=== PATIENT | male | born 1940 | race Caucasian/White ===

== ENCOUNTER → 2017-11-24 | Outpatient (CLI) | payer OTHER ==
[~2017-11-24] MED LIST: AMLO5 PO; COUMADIN; FINA5 PO; FLUSAL2505 INH; HYDROCHLOROTHIAZIDE; LEVSOD88 PO; LISINOPRIL; METO100ER PO; NORVASC; OMEPRAZOLE MAGN20 MG PO; Simvastatin20 MG PO; VALSARTAN-HCTZ1 EAC4 PO
== END ==
LOC: PLD 13:59 → LAB SHORT 13:59
DX: D48.5 Neoplasm of uncertain behavior of skin (principal)
CPT/HCPCS: 88305

== ENCOUNTER → 2017-12-14 | Outpatient (CLI) | payer OTHER | LOC: LAB SHORT 07:42 → PLD 07:42 | DX: C44.319 Basal cell carcinoma of skin of other parts of face (principal) | CPT/HCPCS: 88305 ==

== ENCOUNTER → 2019-06-08 | Outpatient (CLI) | payer OTHER | END | disposition home or self-care (01) | LOC: PLD 14:24 → LAB SHORT 14:24 | DX: C44.319 Basal cell carcinoma of skin of other parts of face (principal); D22.5 Melanocytic nevi of trunk | CPT/HCPCS: 88305 ==

== ENCOUNTER → 2019-06-21 | Outpatient (CLI) | payer OTHER | LOC: PLD 14:14 → LAB SHORT 14:14 | DX: C44.310 Basal cell carcinoma of skin of unspecified parts of face (principal) | CPT/HCPCS: 88305 ==

== ENCOUNTER → 2019-12-13 | Outpatient (CLI) | payer OTHER | END | disposition home or self-care (01) | LOC: PLD 09:13 → LAB SHORT 09:13 | DX: D48.5 Neoplasm of uncertain behavior of skin (principal) | CPT/HCPCS: 88305 ==

== ENCOUNTER → 2020-01-17 | Outpatient (CLI) | payer OTHER | END | disposition home or self-care (01) | LOC: PLD 08:08 → LAB SHORT 08:08 | DX: C44.619 Basal cell carcinoma of skin of left upper limb, including shoulder (principal) | CPT/HCPCS: 88305 ==

== ENCOUNTER → 2020-06-02 | Outpatient (CLI) | payer OTHER ==
[~2020-06-02] MED LIST changes: +OMEP20ER PO
[2020-06-02 11:06] LABS: BASOPHILS ABSOLUTE AUTO 0.06 K/mm3 (0.00-0.23); BASOPHILS PERCENT AUTO 1 % (0-2); EOSINOPHILS ABSOLUTE AUTO 0.57 K/mm3 (0.00-0.68); EOSINOPHILS PERCENT AUTO 8 % (0-6); Hematocrit 44.9 % (37.0-53.0); Hemoglobin 15.4 g/dL (13.5-17.5); IMMATURE GRAN ABSOLUTE AUTO 0.02 K/mm3 (0.00-0.10); IMMATURE GRAN PERCENT AUTO 0 % (0-1); LYMPHOCYTES PERCENT AUTO 34 % (21-46); MONOCYTES ABSOLUTE AUTO 0.67 K/mm3 (0.16-1.47); MONOCYTES PERCENT AUTO 10 % (4-13); Mean Corpuscular HGB 30.1 pg (26.0-34.0); Mean Corpuscular HGB Conc 34.3 g/dL (31.5-36.5); Mean Corpuscular Volume 88 fL (80-100); Mean Platelet Volume 9.2 fL (9.1-12.4); NEUTROPHILS ABSOLUTE AUTO 3.17 K/mm3 (1.96-9.15); NEUTROPHILS PERCENT AUTO 47 % (41-73); Platelet Count 230 K/mm3 (150-400); RDW Coefficient Variation 13.3 % (11.7-14.2); Red Blood Cell Count 5.11 M/mm3 (4.30-5.90); White Blood Cell Count 6.79 K/mm3 (4.00-11.30)
[2020-06-02 11:59] LABS: Alanine Aminotransfer (ALT/SGP 42 U/L (12-78); Albumin, Blood 3.9 g/dL (3.4-5.0); Alk Phos 68 U/L (40-126); Anion Gap 7 mmol/L (6-16); Aspartate Aminotrans (AST/SGOT 35 U/L (12-37); Bilirubin, Total 0.6 mg/dL (0.1-1.0); Blood Urea Nitrogen 19 mg/dL (8-24); Bun/Creatinine Ratio 19.8 (12.0-20.0); CHOL/HDL RATIO 3.3; CO2, Blood 31 mmol/L (21-32); Calcium, Blood 9.1 mg/dL (8.5-10.1); Chloride, Blood 101 mmol/L (98-108); Cholesterol 140 mg/dL (50-200); Creatinine, Blood 0.96 mg/dL (0.60-1.20); Globulin, Blood 4.1 g/dL (2.2-4.0); Glomerular Filtration Rate >60 (60-); Glucose, Blood 105 mg/dL (70-99); HDL Cholesterol 43 mg/dL (>39); LDL/HDL RATIO 1.8; Low Density Lipoprotein Chol 79 mg/dL (<110); Sodium, Blood 139 mmol/L (136-145); Thyroid Stimulating Hormone 1.658 uIU/mL (0.360-4.800); Triglycerides 90 mg/dL (30-160); Very Low Density Lipoprot Chol 18 mg/dL (6-32)
[2020-06-02 14:06] LABS: PSA, %Free 21.3 %
== END ==
LOC: LAB SHORT 09:52 → LAB EV 09:52
PROVIDERS: Family Medicine
DX: E03.9 Hypothyroidism, unspecified (principal); N40.0 Benign prostatic hyperplasia without lower urinary tract symptoms; E78.49 Other hyperlipidemia; I10 Essential (primary) hypertension; R73.03 Prediabetes
CPT/HCPCS: 80053; 80061; 83036; 84153; 84154; 84443; 85025

== ENCOUNTER 2020-06-20 08:56 | Day surgery (SDC) | payer OTHER ==
[~2020-06-20] VITALS: Ht 182.9 cm; Wt 97.0 kg
--- NOTE | 2020-06-20 14:16 | NUR ---
06/20/20 1416 MATT MOTTA DURING PROCEDURE, PT WAS REPOSITIONED TO SUPINE, AND BACK TO LEFT LATERAL, MULTIPLE ATTEMPTS OF ABD PRESSURE, TO REACH CECUM WITHOUT SUCCESS. PATIENT WAS ADVISED DR WAS UNABLE TO REACH CECUM AND PER DR CARRENO SHOULD CONSIDER CT COLONOGRAPHY. 1036 PT TO SUPINE, 1040 PT BACK TO LEFT LATERAL POSITION. DURING CASE, PT SATS WERE AT 91% AND O2 WAS INCRESED TO 5L VIS NC. PT THEN MAINTAINED O2 SATS OF 95 - 96%
== END 2020-06-20 11:40 | disposition home or self-care (01) ==
LOC: ORSCSDS 08:56
PROVIDERS: Internal Medicine Gastroenterology
PROC: 0DBL8ZX Excision of Transverse Colon, Via Natural or Artificial Opening Endoscopic, Diagnostic (ICD-10-PCS; principal; 2020-06-20 10:15)
PROC: 0DBK8ZX Excision of Ascending Colon, Via Natural or Artificial Opening Endoscopic, Diagnostic (ICD-10-PCS; principal; 2020-06-20 10:15)
PROC: 0DBN8ZX Excision of Sigmoid Colon, Via Natural or Artificial Opening Endoscopic, Diagnostic (ICD-10-PCS; principal; 2020-06-20 10:15)
DX: Z12.11 Encounter for screening for malignant neoplasm of colon (principal); D12.2 Benign neoplasm of ascending colon; D12.3 Benign neoplasm of transverse colon; D12.5 Benign neoplasm of sigmoid colon; K57.30 Diverticulosis of large intestine without perforation or abscess without bleeding; Z86.010 Personal history of colon polyps; I10 Essential (primary) hypertension; E78.5 Hyperlipidemia, unspecified; J45.909 Unspecified asthma, uncomplicated; E07.9 Disorder of thyroid, unspecified; Z79.51 Long term (current) use of inhaled steroids; Z79.899 Other long term (current) drug therapy; K64.8 Other hemorrhoids
CPT/HCPCS: 88305; J2704; J7120

== ENCOUNTER → 2020-12-11 | Outpatient (CLI) | payer OTHER | END | disposition home or self-care (01) | LOC: LAB 12:14 → LAB SHORT 12:14 | DX: C44.619 Basal cell carcinoma of skin of left upper limb, including shoulder (principal) | CPT/HCPCS: 88305 ==

== ENCOUNTER → 2020-12-27 | Outpatient (CLI) | payer OTHER | LOC: LAB 12:06 → LAB SHORT 12:06 | DX: C44.619 Basal cell carcinoma of skin of left upper limb, including shoulder (principal) | CPT/HCPCS: 88305 ==

== ENCOUNTER → 2021-05-16 | Outpatient (CLI) | payer OTHER | END | disposition home or self-care (01) | LOC: LAB SHORT 14:52 | DX: D04.62 Carcinoma in situ of skin of left upper limb, including shoulder (principal); C44.519 Basal cell carcinoma of skin of other part of trunk; D04.72 Carcinoma in situ of skin of left lower limb, including hip | CPT/HCPCS: 88305 ==

== ENCOUNTER → 2021-11-14 | Outpatient (CLI) | payer OTHER | END | disposition home or self-care (01) | LOC: LAB SHORT 14:55 | DX: C44.42 Squamous cell carcinoma of skin of scalp and neck (principal); C44.519 Basal cell carcinoma of skin of other part of trunk | CPT/HCPCS: 88305 ==

== ENCOUNTER → 2022-06-10 | Outpatient (CLI) | payer OTHER | LOC: LAB SHORT 14:51 → PLD 14:51 | DX: C44.319 Basal cell carcinoma of skin of other parts of face (principal) | CPT/HCPCS: 88305 ==

== ENCOUNTER → 2022-12-09 | Outpatient (CLI) | payer OTHER | END | disposition home or self-care (01) | LOC: PLD 14:49 → LAB SHORT 14:49 | DX: C44.612 Basal cell carcinoma of skin of right upper limb, including shoulder (principal) | CPT/HCPCS: 88305 ==

== ENCOUNTER → 2023-06-15 | Outpatient (CLI) | payer OTHER | END | disposition home or self-care (01) | LOC: LAB SHORT 14:54 → PLD 14:54 | DX: C44.519 Basal cell carcinoma of skin of other part of trunk (principal); C44.619 Basal cell carcinoma of skin of left upper limb, including shoulder | CPT/HCPCS: 88305 ==

== ENCOUNTER 2025-05-10 10:00 | Day surgery (SDC) | payer OTHER ==
[2025-05-10] VITALS (9 sets, daily range): BP systolic 111–164; BP diastolic 57–72
[~2025-05-10] VITALS: Ht 182.9 cm; Wt 98.4 kg
[~2025-05-10 10:00] MED LIST changes: +DUTA.5 PO; +ELIQUIS5 M2 PO; +HYDRA25 PO; +LOSA50 PO; -METO100ER PO; +METO25ER PO; +TAMS.4ER PO
[2025-05-10] MEDS ORDERED: NS 250 ML IV ONE (10:21)
[2025-05-10] MEDS ORDERED: Heparin Sodium 1000 Units/ML 10ML MDV ONE (10:21)
[2025-05-10] MEDS ORDERED: Verapamil HCL 2.5 MG/ML 2ML Injection ONE (10:21)
[2025-05-10] MEDS ORDERED: NS 1,000 ML IV ONE ×2 (10:21→10:45)
[2025-05-10] MEDS ORDERED: Nitroglycerin 2 MG/20 ML BTL ONE (10:22)
[2025-05-10] MEDS ORDERED: Midazolam HCl 1MG / ML 2ML Vial ONE (10:45)
[2025-05-10] MEDS ORDERED: FentaNYL Citrate 50 MCG/ML 2 ML Injection ONE (10:45)
--- NOTE | 2025-05-10 12:05 | NUR ---
PT BACK TO RECOVERY ROOM FROM PROCEDURE. PT SITTING UP IN RECLINER, ALERT AND ORIENTED. 11CC AIR IN TR BAND TO R WRIST. PT GIVEN SNACKS AND WATER PER REQUEST.
--- NOTE | 2025-05-10 13:15 | NUR ---
PT UP TO BR AND BACK TO RECLINER. STABLE ON FEET, DEMONSTRATES CORRECT R WRIST PRECAUTIONS.
--- NOTE | 2025-05-10 13:22 | NUR ---
BEGAN DEFLATING TR BAND.
--- NOTE | 2025-05-10 14:03 | NUR ---
TR BAND FULLY DEFLATED.
--- NOTE | 2025-05-10 14:30 | NUR ---
PT UP AND DRESSED, R RADIAL SITE AND R AC VENOUS SITE C/D/I, NO BLEEDING OR HAMATOMA. PT VERBALIZE D/C INSTRUCTIONS. IV D/C CATHETER INTACT. TR BAND REMOVED AND CLOTH DOT DRESSING APPLIED. PT CALLS DAUGHTER FOR RIDE. PT WHEELED OUT OF DEPT WITH D/C INSTUCTIONS IN HAND.
== END 2025-05-10 14:45 | disposition home or self-care (01) ==
LOC: MHTC 10:00
DX: I35.0 Nonrheumatic aortic (valve) stenosis (principal); I25.10 Atherosclerotic heart disease of native coronary artery without angina pectoris; I10 Essential (primary) hypertension; E78.5 Hyperlipidemia, unspecified; I48.0 Paroxysmal atrial fibrillation; Z79.01 Long term (current) use of anticoagulants; Z79.899 Other long term (current) drug therapy
CPT/HCPCS: 76937; 93456; 99152; 99153; A9270; C1769; C1887; C1894; J1644; J2250; J3010; J7030; J7050; Q9967